=== PATIENT | female | born 1965 | race Caucasian/White ===

== ENCOUNTER 2023-11-07 20:24 | Emergency (ER) | payer OTHER, SELFPAY ==
[2023-11-07 20:33] VITALS: BP 154/82
[2023-11-07 20:57] VITALS: BMI 32.1
[2023-11-07] MEDS: AUGMENTIN 875 MG/125 MG 1 TABLET PO (22:31)
[2023-11-07] MEDS: ADACEL 0.5 ML IM (22:32)
--- NOTE | 2023-11-07 22:55 | ED.SKININJ ---
HPI-Injury
General
Chief Complaint: Bite
Source: patient
Exam Limitations: none
Time Seen by Provider: 11/07/23 20:54
Nursing documentation reviewed up to this point in time: agreed with
Travel History
Have you had any contact with someone who has COVID-19?: No
Do you have any symptoms of coronavirus? Fever > 100 degrees, chills, cough, shortness of breath, sore throat, loss of taste or smell, muscle aches, or headache?: No
History of Present Illness-Injury
Is this injury a work related problem?: No
Is pt an associate of [facility]?: No
Initial Injury comments:
Accidentally bit by friends dog. Sustained bite to left palmar 3ed finger. COmplains of pain to site. Injury occurred this afternoon. Dog is UTD with rabies.
Past History
Past History
ED Past Medical History: None
ED Past Surgical History: None
Review of Systems
Review of Systems
Allergies reviewed?: Yes
All Other Systems: ROS reviewed and negative except as documented in HPI and ROS
Constitutional: Reports no symptoms
Musculoskeletal: Reports joint pain (Pain to left 3rd finger)
Skin: Reports other (dog bite to left palmar 3rd finger)
Neurological: Reports no symptoms
Psychiatric: Reports no symptoms
Skin Exam
Bite
Left Third Finger:
Type: animal
Skin has: puncture wounds
Surrounding area around bite has: no evidence of erythema
Distal skin color and temperature: normal-warm & good color
Normal distal neurovascular exam: Yes
Phy Exam
General Physical Exam
General Presentation: well appearing and no apparent distress
General age: appears stated age
General Skin: warm and dry
General Habitus: normal
General Mental: alert
Musculoskeletal Exam
Musculoskeletal Exam: full ROM (Full ROM to left 3rd finger. No evidence of tendon injury) and neuro vasc intact
Skin Exam
Skin Exam: normal color, warm/dry and no rash
Psychiatric Exam
Psychiatric Exam: normal mood/affect
Course
Orders/Labs/Results
Orders:
Orders
11/07/23 21:54
Amoxicillin 875 mg/Clav 125 mg [Augmentin 875 mg/125 mg] 1 tablet PO NOW STA
Tetanus/Diphth/Acelpertussis [Adacel] 0.5 ml IM .ONCE ONE
Finger(s)/Thumb 2 View Lt [CR Finger(s)/thumb Min 2 Vw Lt] Urgent
Comment:
Reason For Exam: dog bite left 3rd finger
Vital Signs
Initial and Last Documented VS:
Initial Vital Signs
Temp Pulse Resp BP Pulse Ox
98.8 F 62 18 154/82 98
11/07/23 20:33 11/07/23 20:33 11/07/23 20:33 11/07/23 20:33 11/07/23 20:33
Last Documented Vital Signs
Temp Pulse Resp BP Pulse Ox
98.8 F 62 18 154/82 98
11/07/23 20:33 11/07/23 20:33 11/07/23 20:33 11/07/23 20:33 11/07/23 20:33
*Radiology
Radiology exam reviewed: radiology read reviewed
*Critical Care Note
Total Time (30-74mins, 75-104mins- exclusive of procedures): Not Applicable
ED Attending Note
-
Portions of this chart may have been created with voice recognition software.� Occasional wrong word or��sound alike� substitutions may have occurred due to the inherent limitations of voice recognition software.
Discharge Plan
Departure
Patient Disposition: Home (Routine Discharge)
Date of Disposition: 11/07/23
Time of Disposition: 22:19
Patient with high blood pressure during this ER visit?: No
Condition: Good
Covid-19: Not Applicable
Discharge Problem:
Dog bite of finger
Instructions: Animal Bites (DC), Wound Care (DC)
Prescriptions:
New
amoxicillin-pot clavulanate 875-125 mg tablet
1 tab PO BID Qty: 14 0RF
Referrals:
NONE,* [Active] -
Activity Restrictions/Additional Instructions:
Return to the emergency department immediately for fever/chills, increasing pain/redness/swelling to your finger, or for any further concerns.
Interventions
Interventions:
*Risk Screen - Suicide Last Done: 11/07/23 20:33
*General Assessment Last Done: 11/07/23 20:58
*Neglect/Abuse Screening Last Done: 11/07/23 20:33
ED- Fall Risk Assessment Last Done: 11/07/23 20:58
*ED COVID-19 Vaccine History Last Done: 11/07/23 20:58
*Nursing Disposition Last Done: 11/07/23 22:41
ED-Skin Assessment Last Done: 11/07/23 20:58
Discharge Date and Time
Discharge Date/Time: 11/07/23 22:41
== END 2023-11-07 22:41 | disposition home or self-care (01) ==
LOC: EMR 20:24
PROVIDERS: EMERGENCY PHYSICIAN Emergency Medicine; FAMILY PHYSICIAN Family Medicine
DX: S61.259A Open bite of unspecified finger without damage to nail, initial encounter (principal); W54.0XXA Bitten by dog, initial encounter; Z23 Encounter for immunization
CPT/HCPCS: 99283; 90471; 73140; 90715